=== PATIENT | male | born 1955 | race African-American/Black ===

== ENCOUNTER 2018-03-28 12:57 | Emergency (ER) | payer OTHER ==
[~2018-03-28] VITALS: Ht 188 cm; Wt 101.6 kg
[2018-03-28 13:04] VITALS: Ht 188 cm; Wt 101.6 kg
[2018-03-28 14:41] VITALS: BP 188/113
== END 2018-03-28 14:57 | disposition home or self-care (01) ==
LOC: ED 12:57
DX: M25.561 Pain in right knee (principal); I10 Essential (primary) hypertension
CPT/HCPCS: J1885

== ENCOUNTER 2018-04-17 19:16 | Emergency (ER) | payer OTHER ==
[~2018-04-17] VITALS: Ht 188 cm; Wt 101.2 kg
[2018-04-17 19:26] VITALS: Ht 188 cm; Wt 101.2 kg
[2018-04-18 00:45] VITALS: BP 147/96
== END 2018-04-18 00:45 | disposition home or self-care (01) ==
LOC: ED 19:16
DX: G89.29 Other chronic pain (principal); M25.561 Pain in right knee; I10 Essential (primary) hypertension
CPT/HCPCS: J1885; J3490; J7512